=== PATIENT | male | born 1975 | race Caucasian/White ===

== ENCOUNTER → 2020-06-20 | Outpatient (CLI) | payer OTHER ==
[~2020-06-20] MED LIST: ASPIR 8181 MG PO; BACTRIM DS TAB1 EACH PO; BASAGLAR SC; CLARITIN10 MG PO; COLCHICINE 0.60.6 MG PO; CUBICIN 500 MG500 MG IV; EFFEXOR XR150 MG PO; HUMALOG SC; HUMALOG100 UNIT/1 SQ; HYDROCHLOROTH12.5 M1 PO; KLONOPIN TAB 00.5 MG PO; LANTUS100 UNIT/1 SQ; LIPITOR TAB 2020 MG PO; LISINOPRIL40 MG PO; METFORMIN HCL1000 MG; METOPROLOL SUCC25 MG PO; NEURONTIN 400400 MG PO; NORCO 7.5-3251 EACH PO; PREDNISONE10 MG PO; PROVENTIL HFA6.7 GM INH; SIMVASTATIN40 MG PO; SINGULAIR4 MG PO; TRADJENTA5 MG PO; VITAMIN C 500500 MG PO
== END ==
LOC: SLEEP-COR 10:47
DX: G47.33 Obstructive sleep apnea (adult) (pediatric) (principal); E66.01 Morbid (severe) obesity due to excess calories; Z68.43 Body mass index [BMI] 50.0-59.9, adult
CPT/HCPCS: 95810

== ENCOUNTER 2020-07-25 22:12 | Emergency (ER) | payer OTHER ==
[~2020-07-25 22:12] MED LIST changes: -COLCHICINE 0.60.6 MG PO
[2020-07-26 04:13] LABS: HEMOGLOBIN 12.4 gm/dl (14.0-17.5); RED BLOOD COUNT 4.55 M/UL (4.20-5.50); WHITE BLOOD COUNT 9.9 K/UL (4.5-11.0)
[2020-07-26] MEDS ORDERED: COLCHICINE 0.60.6 MG PO (10:13)
== END 2020-07-26 10:26 | disposition home or self-care (01) ==
LOC: ER1 22:12
PROVIDERS: Physician Assistant
DX: M25.572 Pain in left ankle and joints of left foot (principal); E11.9 Type 2 diabetes mellitus without complications
CPT/HCPCS: 73610; 73630; 84550; 85025; 85379; 85610; 85652; 85730; 86140; 93971; 96374; 96375; 99284; J1650; J2270; J2405

== ENCOUNTER → 2020-07-30 | Outpatient (CLI) | payer OTHER ==
[~2020-07-30] MED LIST changes: +COLCHICINE 0.60.6 MG PO
== END ==
LOC: KOH-I 16:04
DX: M14.672 Charcot's joint, left ankle and foot (principal); M24.275 Disorder of ligament, left foot
CPT/HCPCS: 73721

== ENCOUNTER → 2020-09-17 | Outpatient (CLI) | payer OTHER | LOC: KOH-I 16:06 | DX: M25.572 Pain in left ankle and joints of left foot (principal); M79.672 Pain in left foot; M21.42 Flat foot [pes planus] (acquired), left foot | CPT/HCPCS: 73610; 73630 ==